=== PATIENT | female | born 1960 | race Caucasian/White ===

== ENCOUNTER 2019-02-19 11:13 | Emergency (ER) | payer OTHER ==
[~2019-02-19] VITALS: Ht 162.6 cm; Wt 93.0 kg
[2019-02-19 11:46] LABS: BASO # 0.1 x10^3/uL (0.0-0.2); BASO % 1 % (0-3); EOS # 0.1 x10^3/uL (0.0-0.7); EOS % 2 % (0-3); HEMATOCRIT 40.5 % (36.0-47.0); HEMOGLOBIN 13.5 g/dL (12.0-15.5); LYMPH % 35 % (24-48); MEAN CORPUSCULAR HEMOGLOBIN 27 pg (25-35); MEAN CORPUSCULAR HGB CONC 33 g/dL (31-37); MEAN CORPUSCULAR VOLUME 82 fL (79-100); MONO # 0.4 x10^3/uL (0.0-1.1); MONO % 5 % (0-9); NEUT # 4.9 x10^3/uL (1.8-7.7); NEUT % 58 % (31-73); PLATELET COUNT 293 x10^3/uL (140-400); RED BLOOD COUNT 4.93 x10^6/uL (3.50-5.40); RED CELL DISTRIBUTION WIDTH 13.4 % (11.5-14.5); WHITE BLOOD COUNT 8.5 x10^3/uL (4.0-11.0)
--- NOTE | 2019-02-19 11:46 | PHYS DOC ---
Past Medical History Past Medical History: Diabetes-Type II Past Surgical History: Gastric Bypass, Hysterectomy Additional Information: nonsmoker Alcohol Use: None Drug Use: None Adult General Chief Complaint Chief Complaint: CHEST PAIN HPI HPI Patient is a 58-year-old female with a past medical history of diabetes that is presenting to the emergency department with chest pain and headache for 24 hours. Patient states that she was sitting still when the chest pain started she describes it as sharp, radiates to her left arm, episodic, she does not associate any activities with the pain, she denies shortness of breath and diaphoresis. Patient states that the headache started along with chest pain, has a history of migraines but doesn't feel that bad. Patient states that she has not taken anything at home for the pain. Patient has no history of heart disease. Review of Systems Review of Systems Constitutional: Denies fever or chills Eyes: Denies redness; reports photophobia HENT: Denies nasal congestion or sore throat Respiratory: Denies cough or shortness of breath Cardiovascular: Denies palpitations, reports chest pain GI: Denies abdominal pain, nausea, or vomiting : Denies dysuria or hematuria Musculoskeletal: Denies back pain or joint pain Integument: Denies rash or skin lesions Neurologic: Denies focal weakness or sensory changes; reports headache Complete systems were reviewed and found to be within normal limits, except as documented in this note. Current Medications Current Medications Current Medications Medications (Trade) Dose Ordered Sig/Silvano Start Time Stop Time Status Last Admin Dose Admin Aspirin (Lucio Aspirin) 325 mg 1X ONCE 02/19/19 12:15 02/19/19 12:16 DC 02/19/19 12:15 325 MG Dexamethasone Sodium Phosphate (Decadron) 10 mg 1X ONCE 02/19/19 12:15 02/19/19 12:16 DC 02/19/19 12:20 10 MG Diphenhydramine HCl (Benadryl) 25 mg 1X ONCE 02/19/19 12:15 02/19/19 12:16 DC 02/19/19 12:21 25 MG Ketorolac Tromethamine (Toradol 15mg Vial) 15 mg 1X ONCE 02/19/19 12:15 02/19/19 12:16 DC 02/19/19 12:20 15 MG Metoclopramide HCl (Reglan Vial) 10 mg 1X ONCE 02/19/19 12:15 02/19/19 12:16 DC 02/19/19 12:20 10 MG Sodium Chloride 1,000 ml @ 1,000 mls/hr 1X ONCE 02/19/19 12:15 02/19/19 13:14 DC 02/19/19 12:15 1,000 MLS/HR Allergies Allergies Allergies Coded Allergies Type Severity Reaction Last Updated Verified Sulfa (Sulfonamide Antibiotics) Allergy Unknown 02/19/19 Yes Physical Exam Physical Exam Constitutional: Well developed, well nourished, no acute distress, non-toxic appearance HENT: Normocephalic, atraumatic, oropharynx moist Eyes: PERRL, EOMI, conjunctiva normal, no discharge, photophobia noted Neck: Normal range of motion, no tenderness, supple, no meningeal signs Cardiovascular: Heart rate normal, regular rhythm Lungs & Thorax: Bilateral breath sounds clear to auscultation, no wheezing Abdomen: Soft, no tenderness Skin: Warm, dry, no erythema, no rash Extremities: No tenderness, ROM intact, no edema Neurologic: Alert and oriented X 3, normal motor function, normal sensory fun ction, no focal deficits noted Psychologic: Affect normal, judgement normal Current Patient Data Vital Signs Vital Signs Date Time Temp Pulse Resp B/P (MAP) Pulse Ox O2 Delivery O2 Flow Rate FiO2 02/19/19 13:00 56 16 173/110 (131) 99 Room Air 02/19/19 11:20 98.1 98.1 Lab Values Laboratory Tests Test 02/19/19 11:25 White Blood Count 8.5 x10^3/uL (4.0-11.0) Red Blood Count 4.93 x10^6/uL (3.50-5.40) Hemoglobin 13.5 g/dL (12.0-15.5) Hematocrit 40.5 % (36.0-47.0) Mean Corpuscular Volume 82 fL (79-100) Mean Corpuscular Hemoglobin 27 pg (25-35) Mean Corpuscular Hemoglobin Concent 33 g/dL (31-37) Red Cell Distribution Width 13.4 % (11.5-14.5) Platelet Count 293 x10^3/uL (140-400) Neutrophils (%) (Auto) 58 % (31-73) Lymphocytes (%) (Auto) 35 % (24-48) Monocytes (%) (Auto) 5 % (0-9) Eosinophils (%) (Auto) 2 % (0-3) Basophils (%) (Auto) 1 % (0-3) Neutrophils # (Auto) 4.9 x10^3/uL (1.8-7.7) Lymphocytes # (Auto) 3.0 x10^3/uL (1.0-4.8) Monocytes # (Auto) 0.4 x10^3/uL (0.0-1.1) Eosinophils # (Auto) 0.1 x10^3/uL (0.0-0.7) Basophils # (Auto) 0.1 x10^3/uL (0.0-0.2) Sodium Level 142 mmol/L (136-145) Potassium Level 3.9 mmol/L (3.5-5.1) Chloride Level 103 mmol/L (98-107) Carbon Dioxide Level 27 mmol/L (21-32) Anion Gap 12 (6-14) Blood Urea Nitrogen 16 mg/dL (7-20) Creatinine 0.7 mg/dL (0.6-1.0) Estimated GFR (Cockcroft-Gault) 85.9 BUN/Creatinine Ratio 23 (6-20) H Glucose Level 142 mg/dL (70-99) H Calcium Level 9.1 mg/dL (8.5-10.1) Magnesium Level 1.9 mg/dL (1.8-2.4) Total Bilirubin 0.3 mg/dL (0.2-1.0) Aspartate Amino Transferase (AST) 11 U/L (15-37) L Alanine Aminotransferase (ALT) 11 U/L (14-59) L Alkaline Phosphatase 75 U/L (46-116) Creatine Kinase 59 U/L (26-192) Creatine Kinase MB (Mass) 1.1 ng/mL (0.0-3.6) Creatine Kinase MB Relative Index % (0-4) Troponin I Quantitative 0.052 ng/mL (0.000-0.055) Total Protein 8.1 g/dL (6.4-8.2) Albumin 3.7 g/dL (3.4-5.0) Albumin/Globulin Ratio 0.8 (1.0-1.7) L Lipase 62 U/L (73-393) L Laboratory Tests 12/29/19 11:25 Laboratory Tests 02/19/19 11:25 EKG EKG EKG at 1124 is normal sinus rhythm at 58 bpm, no ST elevations Radiology/Procedures Radiology/Procedures PROCEDURE: CHEST PA & LATERAL CHEST PA LATERAL History: Chest pain.. Heart size not enlarged. No evidence of focal infiltrate, pleural effusion or pneumothorax. Bones appear grossly intact. IMPRESSION: No consolidating infiltrate. Electronically signed by: Travis Joel MD (02/19/2019 12:01 PM) [facility] Course & Med Decision Making Course & Med Decision Making Pertinent Labs and Imaging studies reviewed. (See chart for details) Patient is a 58-year-old female with past medical history of diabetes that is presenting to the emergency department with chest pain and headache for 24 hours. Patient was seen and examined at bedside. Physical exam was unremarkable with exception for photophobia. Labs and imaging ordered. Fluids ordered. Pain addressed. EKG at 1124 is normal sinus rhythm at 58 bpm, no ST elevations. Chest x-ray without acute process. Initial troponin negative, lipase negative, other labs at baseline. Heart score 3. Chest pain and headache have resolved. Given heart score and low risk factors, patient stable for discharge with outpatient follow-up with PCP/cardiology. Discussed findings and plan with patient, who acknowledges understanding and agreement. Dragon Disclaimer Dragon Disclaimer This electronic medical record was generated, in whole or in part, using a voice recognition dictation system. Departure Departure Impression: Primary Impression: Headache Additional Impression: Atypical chest pain Disposition: HOME, SELF-CARE Condition: STABLE Referrals: JASS VALENTIN MD Patient Instructions: Chest Pain (Nonspecific), [id number], General Headache Without Cause, [id number] The HEART Score for CP Pts HEART Score for Chest Pain: HEART Score for Chest Pain Response (Comments) Value History Moderately Suspicious 1 ECG Normal 0 Age >45 - < 65 1 Risk Factors 1 or 2 Risk Factors 1 Troponin < Normal Limit 0 Total 3 Risk Factors: Risk Factors: DM, Current or recent (<one month) smoker, HTN, HLP, family history of CAD, obesity. Risk Scores: Score 0 - 3: 2.5% MACE over next 6 weeks - Discharge Home Score 4 - 6: 20.3% MACE over next 6 weeks - Admit for Clinical Observation Score 7 - 10: 72.7% MACE over next 6 weeks - Early Invasive Strategies Problem Qualifiers Primary Impression: Headache Headache type: tension-type Headache chronicity pattern: unspecified pattern Intractability: not intractable Qualified Codes: G44.209 - Tension-type headache, unspecified, not intractable TRAVIS NAIDU DO Feb 19, 2019 11:46
--- NOTE | 2019-02-19 12:04 | RAD ---
CHEST PA LATERAL History: Chest pain.. Heart size not enlarged. No evidence of focal infiltrate, pleural effusion or pneumothorax. Bones appear grossly intact. IMPRESSION: No consolidating infiltrate. Electronically signed by: Travis Joel MD (02/19/2019 12:01 PM) [facility]
[2019-02-19 12:06] LABS: CALCIUM 9.1 mg/dL (8.5-10.1); CREATININE 0.7 mg/dL (0.6-1.0); GFR 85.9; POTASSIUM 3.9 mmol/L (3.5-5.1)
[2019-02-19 12:10] LABS: ALBUMIN 3.7 g/dL (3.4-5.0); ALBUMIN/GLOBULIN RATIO 0.8 (1.0-1.7); CREATINE KINASE 59 U/L (26-192); MAGNESIUM 1.9 mg/dL (1.8-2.4); TOTAL BILIRUBIN 0.3 mg/dL (0.2-1.0); TOTAL PROTEIN 8.1 g/dL (6.4-8.2)
[2019-02-19] MEDS ORDERED: ASPIRIN 325 MG TABLET PO ONE (12:15)
[2019-02-19] MEDS ORDERED: KETOROLAC 15 MG/ML VIAL. IVP ONE (12:15)
[2019-02-19] MEDS ORDERED: METOCLOPRAMIDE HCL 10 MG/2 ML VIAL. IVP ONE (12:15)
[2019-02-19] MEDS ORDERED: diphenhydrAMINE 50 MG/ML VIAL IVP ONE (12:15)
[2019-02-19] MEDS ORDERED: DEXAMETHASONE SOD PHOS 4 MG/ML VIAL IVP ONE (12:15)
[2019-02-19] MEDS ORDERED: IV NORMAL SALINE 1000ML BAG 1,000 ML IV ONE (12:15)
[2019-02-19 13:00] VITALS: BP 173/110
--- NOTE | 2019-02-20 07:43 | EKG ---
[facility] [address] [place] [address] Test Date: 2019-02-19 Test Time: 11:24:26 Pat Name: ALEXANDRA DONIS Department: Room: Gender: F [employer]: : 1960 Requested By: PREMA NAIDU Order Number: [id number] Reading MD: Measurements Intervals [place] Rate: 58 P: [place]: QRS: 41 QRSD: 80 T: 72 QT: 450 QTc: 441 Interpretive Statements IRREGULAR RHYTHM, NO P-WAVE FOUND QRS(T) CONTOUR ABNORMALITY CONSIDER ANTEROLATERAL MYOCARDIAL DAMAGE POSSIBLY ABNORMAL ECG RI6.01 No previous ECG available for comparison
== END 2019-02-19 13:02 | disposition home or self-care (01) ==
LOC: ER 11:13
DX: G44.209 Tension-type headache, unspecified, not intractable (principal); R07.89 Other chest pain; E11.9 Type 2 diabetes mellitus without complications; Z98.84 Bariatric surgery status; Z90.710 Acquired absence of both cervix and uterus; Z88.2 Allergy status to sulfonamides
CPT/HCPCS: 36415; 71046; 80053; 82553; 83690; 83735; 84484; 85025; 93005; 96374; 96375; 99285; J1100; J1200; J1885; J2765; J7030